=== PATIENT | female | born 1980 | race Two or more races ===

== ENCOUNTER → 2022-07-30 | Outpatient (CLI) | LOC: M SOG 08:23 | PROVIDERS: ATTEND Orthopaedic Surgery | DX: M25.561 Pain in right knee (principal) ==

== ENCOUNTER → 2022-09-15 | Outpatient (CLI) | payer OTHER | LOC: M RAD 16:14 | PROVIDERS: ATTEND Orthopaedic Surgery | DX: M25.561 Pain in right knee (principal); M23.003 Cystic meniscus, unspecified medial meniscus, right knee ==